=== PATIENT | male | born 1980 | race Caucasian/White ===

== ENCOUNTER 2024-04-13 23:18 | Emergency (ER) | payer SELFPAY ==
[~2024-04-13] VITALS: Ht 170.2 cm; Wt 83.0 kg
[2024-04-13 23:24] VITALS: O2SAT 97
[2024-04-13 23:39] VITALS: BP 150/95; PULSE 87; TEMP 98.4; O2SAT 98
[2024-04-14] MEDS: METHOCARBAMOL 750MG TABLET PO SCH (01:03)
[2024-04-14] MEDS: ACETAMINOPHEN 325MG TABLET PO ONE (01:04)
[2024-04-14 02:10] LABS: CLARITY URINE CLEAR (CLEAR); COLOR URINE YELLOW (YELLOW); GLUCOSE URINE NEGATIVE (NEGATIVE); KETONES URINE NEGATIVE (NEGATIVE); LEUKOCYTE ESTERASE URINE NEGATIVE (NEGATIVE); NITRITE URINE NEGATIVE (NEGATIVE); OCCULT BLOOD URINE NEGATIVE (NEGATIVE); PROTEIN URINE NEGATIVE (NEGATIVE); SPECIFIC GRAVITY URINE 1.025 (1.005-1.030)
[2024-04-14 02:35] VITALS: RESP 17
[2024-04-14] MEDS ORDERED: TOPUD PO (02:43)
[2024-04-14] MEDS ORDERED: LIDO700A15 TP (02:43)
[2024-04-14] MEDS ORDERED: METH-653 MT (02:43)
[2024-04-14] MEDS ORDERED: IBUP-2028 MT (02:43)
== END 2024-04-14 02:51 | disposition home or self-care (01) ==
LOC: ER 23:18
DX: S13.4XXA Sprain of ligaments of cervical spine, initial encounter (principal); M51.36 Other intervertebral disc degeneration, lumbar region; V49.59XA Passenger injured in collision with other motor vehicles in traffic accident, initial encounter; Y93.89 Activity, other specified; Y92.89 Other specified places as the place of occurrence of the external cause; Y99.8 Other external cause status
CPT/HCPCS: 72100; 76700; 76870; 81003; 93976; 99284